=== PATIENT | female | born 1985 | race Caucasian/White ===

== ENCOUNTER 2025-03-06 16:00 | Emergency (ER) | payer MEDICAID ==
[~2025-03-06] VITALS: Ht 157.5 cm; Wt 99.8 kg
[~2025-03-06 16:00] MED LIST: METF100C2
[2025-03-06 16:01] VITALS: O2SAT 100
[2025-03-06 16:08] VITALS: BP 204/105; PULSE 100; RESP 16; TEMP 36.8; O2SAT 100
[2025-03-06 16:32] LABS: BASOPHILS % 1.3 % (0.0-2.0); DIFFERENTIAL COMMENT 0; EOSINOPHILS % 5.5 % (0.0-5.0); HEMATOCRIT. 34.3 % (36.0-48.0); HEMOGLOBIN. 10.5 g/dL (12.0-16.0); LYMPHOCYTES % 31.5 % (20.0-50.0); MEAN CORPUSCULAR HEMOGLOBIN 22.1 pg (28.0-32.0); MEAN CORPUSCULAR HGB CONC 30.5 g/dL (31.0-37.0); MEAN CORPUSCULAR VOLUME 72.5 fL (81.0-99.0); MEAN PLATELET VOLUME 7.8 fl (7.4-10.4); MONOCYTES % 10.5 % (2.0-8.0); NEUTROPHILS % 51.2 % (40.0-76.0); PLATELET 509 x1000/uL (130-400); RED BLOOD CELL COUNT 4.73 mill/uL (4.2-5.4); RED CELL DISTRIBUTION WIDTH 18.5 % (11.6-14.6); WHITE BLOOD COUNT 5.1 x1000/uL (4.5-11.0)
[2025-03-06 16:42] LABS: CHLORIDE 104 mEq/L (98-107); POTASSIUM 3.8 mEq/L (3.5-5.1); SODIUM 138 mEq/L (136-145)
[2025-03-06 16:43] LABS: CALCIUM 9.3 mg/dL (8.7-10.4); CARBON DIOXIDE 29 mEq/L (21-32)
[2025-03-06 16:48] LABS: CREATININE 0.8 mg/dL (0.6-1.0); GLUCOSE 193 mg/dL (70-105); UREA NITROGEN BLOOD 9 mg/dL (9-23)
[2025-03-06 16:52] LABS: HCG SCREEN NEGATIVE
== END 2025-03-06 20:41 | disposition left against medical advice (07) ==
LOC: ER 16:00
DX: N93.9 Abnormal uterine and vaginal bleeding, unspecified (principal); R21 Rash and other nonspecific skin eruption; J44.9 Chronic obstructive pulmonary disease, unspecified; I10 Essential (primary) hypertension; E11.9 Type 2 diabetes mellitus without complications; Z88.0 Allergy status to penicillin; Z53.21 Procedure and treatment not carried out due to patient leaving prior to being seen by health care provider
CPT/HCPCS: 36415; 76830; 76856; 80048; 84703; 85025; 86850; 86900; 99284

== ENCOUNTER 2025-05-13 21:42 | Emergency (ER) | payer MEDICAID, OTHER ==
[~2025-05-13] VITALS: Ht 157.5 cm; Wt 100.2 kg
[2025-05-13 21:54] VITALS: O2SAT 100
[2025-05-13] MEDS: IBUPROFEN 600MG TABLET PO ONE (23:16)
[2025-05-13] MEDS: LIDOCAINE 5% PATCH TOP SCH (23:18)
[2025-05-13] MEDS ORDERED: IBUP-2029 MT (23:36)
[2025-05-13] MEDS ORDERED: LIDO700A30 TP (23:36)
[2025-05-14] MEDS: HYDROCODONE/ACETAMINOPHEN 5/325MG TABLET PO ONE (00:59)
[2025-05-14] MEDS ORDERED: HYDR-4001 MT (02:00)
[2025-05-14 02:22] VITALS: BP 209/114; PULSE 85; RESP 18; TEMP 36.7; O2SAT 96
[2025-05-14] MEDS: CLONIDINE 0.1MG TABLET PO ONE (02:37)
== END 2025-05-14 02:40 | disposition home or self-care (01) ==
LOC: ER 21:42
DX: S16.1XXA Strain of muscle, fascia and tendon at neck level, initial encounter (principal); M54.9 Dorsalgia, unspecified; Z79.899 Other long term (current) drug therapy; Z88.0 Allergy status to penicillin; V89.2XXA Person injured in unspecified motor-vehicle accident, traffic, initial encounter; Y93.89 Activity, other specified; Y92.89 Other specified places as the place of occurrence of the external cause; Y99.8 Other external cause status
CPT/HCPCS: 72040; 72070; 72128; 99285